=== PATIENT | female | born 1950 | race Hispanic/Latino ===

== ENCOUNTER 2017-06-14 09:22 | Day surgery (SDC) | payer MEDICARE, OTHER ==
[2017-06-14] MEDS ORDERED: NEO SYNEPHRINE/NS Syringe(OR USE) IV ONE (11:00)
[2017-06-14] MEDS ORDERED: ROBINUL ONE (11:00)
[2017-06-14] MEDS ORDERED: ZOFRAN ONE ×2 (11:14→12:26)
[2017-06-14] MEDS ORDERED: LACTATED RINGERS 1,000 ML ONE (11:14)
--- NOTE | 2017-06-14 11:39 | Anesthesia Consultation ---
Anesthesia Consult and Med Hx Date of service: 06/14/17 - Airway Anesthetic Teeth Evaluation: Good ROM Head & Neck: Adequate Mental/Hyoid Distance: Adequate Mallampati Class: Class II Intubation Access Assessment: Probably Good - Pulmonary Exam CTA: Yes - Cardiac Exam Cardiac Exam: RRR - Pre-Operative Health Status ASA Pre-Surgery Classification: ASA3 Proposed Anesthetic Plan: General - Pulmonary Hx Smoking: No Hx Asthma: No Hx Respiratory Symptoms: Yes (Allergies) SOB: No COPD: No Hx Pneumonia: No Hx Sleep Apnea: No (ED PRE SCREEN LOW RISK) - Cardiovascular System Hx Hypertension: No Hx Coronary Artery Disease: No Hx Heart Attack/AMI: No Hx Angina: No Hx Percutaneous Transluminal Coronary Angioplasty (PTCA): No Hx Pacemaker: No Hx Internal Defibrillator: No Hx Valvular Heart Disease: No Hx Heart Murmur: No Hx Peripheral Vascular Disease: No - Central Nervous System Hx Seizures: No CVA: No Hx Back Pain: No Hx Psychiatric Problems: No - Gastrointestinal Hx Ulcer: No Hx Gastroesophageal Reflux Disease: No ("short gut" syndrome; chronic nausea) - Endocrine Hx Renal Disease: No Hx End Stage Renal Disease: No Hx Cirrhosis: No Hx Liver Disease: No Hx Hypothyroidism: Yes (ON MEDS) Hx Hyperthyroidism: No - Hematic Hx Anemia: Yes - Other Systems Hx Cancer: Yes (Lt breast CA; s/p mastectomy; no chemo/rad) Hx Obesity: No
--- NOTE | 2017-06-14 11:40 | Anesthesia Day of Surgery ---
Anesthesia Day of Surgery - Day of Surgery Patient Examined: Yes Patient H&P Reviewed: Yes Patient is NPO: Yes
[2017-06-14] MEDS ORDERED: LEVAQUIN 500MG/100ML 500 MG/100 ML BAG IV NR (12:00)
[2017-06-14] MEDS ORDERED: ZOFRAN IV NR (12:00)
[2017-06-14] MEDS ORDERED: PEPCID PO NR (12:00)
[2017-06-14] MEDS ORDERED: LACTATED RINGERS 1,000 ML IV SCH (12:00)
[2017-06-14] MEDS ORDERED: VERSED IV NR (12:00)
[2017-06-14] MEDS ORDERED: DIPRIVAN 10 MG/ML IV ONE (12:06)
[2017-06-14] MEDS ORDERED: SUBLIMAZE ONE (12:06)
[2017-06-14] MEDS ORDERED: XYLOCAINE MPF 2% ONE (12:11)
[2017-06-14] MEDS ORDERED: DECADRON ONE (12:27)
[2017-06-14] MEDS ORDERED: WATER FOR IRRIG STERILE IR ONE (12:45)
--- NOTE | 2017-06-14 13:04 | Short Stay Summary ---
Short Stay Documentation Date of service: 06/14/17 - History H&P: obtained from office - Allergies and Medications Current Medications: Allergies adhesive Allergy (Verified 12/01/14 13:42) Rash ampicillin Allergy (Unverified 03/04/15 06:10) Rash/ITCHING nitrofurantoin macrocrystalline [From Macrodantin] Allergy (Unverified 03/04/15 06:10) Rash/ITCHING red dye Allergy (Verified 03/07/15 15:09) Itching Sulfa (Sulfonamide Antibiotics) Allergy (Verified 03/07/15 15:09) Rash codeine Adverse Reaction (Verified 12/01/14 13:42) Nausea Home Medications Medication Instructions Recorded Confirmed Last Taken Type Calcium Citrate/Vitamin D3 2 tab PO 8XD 11/30/14 06/12/17 04/25/15 History [Calcium Citrate - Vit D Tablet] Cetirizine HCl [ZyrTEC] 10 mg PO PRN PRN 11/30/14 06/12/17 04/25/15 History Cyanocobalamin [Vitamin B-12] 1,000 mcg IM 1XW 11/30/14 06/12/17 04/25/15 History Diphenoxylate/Atropine [Lomotil] 1 tab PO QID 11/30/14 06/12/17 04/25/15 History Escitalopram Oxalate [Lexapro] 5 mg PO QDAY 11/30/14 06/12/17 04/26/15 History Ferrous Sulfate [Iron Supplement] 325 mg PO DAILY 11/30/14 06/12/17 04/25/15 History Fluticasone [Flonase] 1 spray NS QDAY 11/30/14 06/12/17 04/27/15 08:00 History Folic Acid [Folvite] 1 mg PO QDAY 11/30/14 06/12/17 04/25/15 History Ketorolac [Toradol] 10 mg PO Q4H PRN 11/30/14 06/12/17 03/06/15 History Levothyroxine [Synthroid] 250 mcg PO QAM 11/30/14 06/12/17 04/27/15 08:00 History Multivit with Calcium,Iron,Min 1 each PO BID 11/30/14 06/12/17 04/25/15 History [Multiple Vitamins For Women] Ranitidine HCl [Zantac] 75 mg PO PRN PRN 11/30/14 06/12/17 04/25/15 History oxyCODONE /ACETAMINOPHEN [Percocet 1 tab PO Q6HR PRN 11/30/14 06/12/17 Unknown History 5/325] Ondansetron [Zofran TAB] 4 mg PO Q8HR PRN #20 tablet 04/26/15 06/12/17 Unknown Rx Hydromorphone HCl [Dilaudid] 2 mg PO Q6HR PRN 06/12/17 06/12/17 Unknown History Sodium Bicarbonate 325 mg PO QID 06/12/17 06/12/17 Unknown History Active Medications Famotidine (Pepcid) 20 mg PO PREOP NR Stop: 06/14/17 23:00 Lactated Ringer's (Lactated Ringers) 1,000 mls @ 100 mls/hr IV DIRECT CLAUDETTE Levofloxacin/Dextrose (Levaquin 500mg/100ml) 500 mg in 100 mls @ 100 mls/hr IV PREOP NR PRN Reason: Protocol Stop: 06/14/17 23:00 Midazolam HCl (Versed) 2 mg IV PREOP NR Stop: 06/14/17 23:59 Ondansetron HCl (Zofran) 4 mg IV PREOP NR Stop: 06/14/17 23:00 - Brief post op/procedure progress note Date of procedure: 06/14/17 Pre-op diagnosis: left ureteral stone Procedure: cysto, rpg, left ureteroscopy stent Anesthesia: GETA Surgeon: DURGA BENAVIDES Pathology: none Condition: stable - Hospital course Hospital course: levaquin, dilaudid, post op info on chart - Disposition Condition at discharge: Stable Disposition: DC-01 TO HOME OR SELFCARE Short Stay Discharge Plan Follow up with: MADI RAJPUT MD [Primary Care Provider] - 7 Days Forms: Outpatient Surgery DC Inst.
[2017-06-14] MEDS ORDERED: DILAUDID PO PRN (13:27)
[2017-06-14] MEDS ORDERED: DILAUDID IV PRN (13:53)
--- NOTE | 2017-06-14 14:20 | Operative Report ---
PREOPERATIVE DIAGNOSIS: Right proximal ureteral stone. POSTOPERATIVE DIAGNOSIS: Right proximal ureteral stone. SECONDARY DIAGNOSES: Proximal ureteral stricture. PROCEDURE: Cystoscopy, bilateral retrograde pyelograms, left ureteroscopy, double-J stent placement. SURGEON: Nakul Koroma MD. ANESTHESIA: General. ESTIMATED BLOOD LOSS: Minimal. FLUIDS: Crystalloid. COMPLICATIONS: No complications. INDICATIONS: This patient is a 66-year-old female with history of kidney stones, had left flank pain. CT of the abdomen and pelvis revealed a 10 mm stone x 2 in the proximal ureter. She presents now for surgical intervention. DESCRIPTION OF PROCEDURE: The patient was taken to the operative suite, placed in a supine position. After adequate general anesthesia, she was placed in the dorsal lithotomy position, prepped and draped in a sterile fashion. Pancystourethroscopy was performed with a 22-Lao Storz cystoscope. No bladder pathology. Bilateral retrograde pyelograms were obtained with an 8-Lao [place] catheter and 8 mL of contrast. No filling defects or obstruction on the right. Left side revealed some kinking of the proximal ureter. Multiple attempts to place a wire was unsuccessful on the left collecting system. Ureteroscopy was performed. I was able to thread the kinked area (stricture) and advanced the scope, stone was now in the lower pole kidney and could not be accessed by ureteroscopy. A 6-Lao 22 cm double-J stent with a short internal string was left indwelling. She was extubated and taken to the recovery room in stable condition. She will go home on Dilaudid and Levaquin and will get outpatient lithotripsy. JOB# [id number] [facility]/JEIS
[2017-06-14 14:41] VITALS: BP 120/64
--- NOTE | 2017-06-15 09:38 | Fluoroscopy Report ---
9 FLUOROSCOPIC IMAGES AT BILATERAL RETROGRADE PYELOGRAM: 06/14/17 CLINICAL: Left ureteral stone. FINDINGS: Band Leader images demonstrate paraspinal surgical clips extending from the left upper quadrant to the pelvis. Subsequent images demonstrate retrograde opacification of a moderately dilated left intrarenal collecting system and ureter. Additional images demonstrate placement of a stent. Retro-grade opacification of a normal right renal collecting system and right ureter. For more detail, please refer to the operative report.
== END 2017-06-14 14:51 | disposition home or self-care (01) ==
LOC: OR 09:22
PROVIDERS: ATTEND Urology
DX: N20.2 Calculus of kidney with calculus of ureter (principal); N13.5 Crossing vessel and stricture of ureter without hydronephrosis; K91.2 Postsurgical malabsorption, not elsewhere classified; Z85.3 Personal history of malignant neoplasm of breast; Z90.12 Acquired absence of left breast and nipple; Z91.048 Other nonmedicinal substance allergy status; Z91.041 Radiographic dye allergy status; Z88.5 Allergy status to narcotic agent; Z88.1 Allergy status to other antibiotic agents; Z88.2 Allergy status to sulfonamides; Z79.899 Other long term (current) drug therapy
CPT/HCPCS: 52332; 74420; A4217; C1758; C1769; C2617; J1100; J1956; J2250; J2370; J2405; J2704; J3010; J7120; Q9967

== ENCOUNTER 2018-09-11 06:15 | Day surgery (SDC) | payer MEDICARE, OTHER ==
[~2018-09-11 06:15] MED LIST: LACTATED RINGERS 1,000 ML IV SCH
[2018-09-11] MEDS ORDERED: LEVAQUIN 500MG/100ML 500 MG/100 ML BAG IV NR (07:00)
[2018-09-11] MEDS ORDERED: LEVAQUIN 500MG/100ML 500 MG/100 ML BAG IV ONE (07:25)
[2018-09-11] MEDS ORDERED: DIPRIVAN 10 MG/ML IV ONE (08:19)
[2018-09-11] MEDS ORDERED: SUBLIMAZE ONE (08:19)
[2018-09-11] MEDS ORDERED: XYLOCAINE MPF 2% ONE (08:20)
--- NOTE | 2018-09-11 08:44 | Anesthesia Consultation ---
Anesthesia Consult and Med Hx Date of service: 09/11/18 - Airway Anesthetic Teeth Evaluation: Good (upper and lower permanent implants) ROM Head & Neck: Adequate Mental/Hyoid Distance: Adequate Mallampati Class: Class II Intubation Access Assessment: Probably Good - Pulmonary Exam CTA: Yes - Cardiac Exam Cardiac Exam: RRR - Pre-Operative Health Status ASA Pre-Surgery Classification: ASA3 Proposed Anesthetic Plan: General - Pulmonary Hx Smoking: No Hx Asthma: No Hx Respiratory Symptoms: Yes (recent sinus infection s/p abx) SOB: No Hx Sleep Apnea: No (ED PRE SCREEN LOW RISK.) - Cardiovascular System Hx Hypertension: No Hx Heart Attack/AMI: No Hx Percutaneous Transluminal Coronary Angioplasty (PTCA): No - Central Nervous System Hx Seizures: No CVA: No Hx Psychiatric Problems: Yes (depression) - Gastrointestinal Hx Gastroesophageal Reflux Disease: No (short-gut syndrome; chronic diarrhea) - Endocrine Hx Renal Disease: No Hx Liver Disease: No Hx Insulin Dependent Diabetes: No Hx Non-Insulin Dependent Diabetes: No Hx Hypothyroidism: Yes (ON DAILY MEDS) - Hematic Hx Anemia: Yes - Other Systems Hx Cancer: Yes (Lt breast CA; s/p mastectomy; no chemo/rad) Hx Obesity: No - Additional Comments Anesthesia Medical History Comments: Hx PONV with previous anesthetics but none with last 2 (received decadron and zofran intraop per previous anes record).
[2018-09-11] MEDS ORDERED: SUBLIMAZE IV PRN (08:45)
--- NOTE | 2018-09-11 08:45 | Anesthesia Day of Surgery ---
Anesthesia Day of Surgery - Day of Surgery Patient Examined: Yes Patient H&P Reviewed: Yes Patient is NPO: Yes
--- NOTE | 2018-09-11 09:29 | Short Stay Summary ---
Short Stay Documentation Date of service: 09/11/18 - History H&P: obtained from office - Allergies and Medications Current Medications: Allergies adhesive Allergy (Verified 12/01/14 13:42) Rash ampicillin Allergy (Verified 09/11/18 06:46) Rash/ITCHING nitrofurantoin macrocrystalline [From Macrodantin] Allergy (Verified 09/11/18 06:46) Rash/ITCHING red dye Allergy (Verified 03/07/15 15:09) Itching Sulfa (Sulfonamide Antibiotics) Allergy (Verified 03/07/15 15:09) Rash codeine Adverse Reaction (Verified 12/01/14 13:42) Nausea Home Medications Medication Instructions Recorded Confirmed Last Taken Type Calcium Citrate/Vitamin D3 2 tab PO 8XD 11/30/14 09/02/18 09/10/18 History [Calcium Citrate - Vit D Tablet] Cetirizine HCl [ZyrTEC] 10 mg PO PRN PRN 11/30/14 09/02/18 09/10/18 History Cyanocobalamin [Vitamin B-12] 1,000 mcg IM 1XW 11/30/14 09/02/18 09/10/18 History Diphenoxylate/Atropine [Lomotil] 2 tab PO QID 11/30/14 09/02/18 09/10/18 History Escitalopram Oxalate [Lexapro] 5 mg PO QDAY 11/30/14 09/02/18 09/10/18 History Ferrous Sulfate [Iron Supplement] 325 mg PO BID 11/30/14 09/02/18 09/10/18 History Fluticasone [Flonase] 1 spray NS QDAY 11/30/14 09/02/18 09/11/18 05:30 History Folic Acid [Folvite] 1 mg PO QDAY 11/30/14 09/02/18 09/10/18 History Levothyroxine (Nf) [Synthroid] 250 mcg PO QAM 11/30/14 09/02/18 09/11/18 05:30 History Multivit with Calcium,Iron,Min 1 each PO BID 11/30/14 09/02/18 09/10/18 History [Multiple Vitamins For Women] Ranitidine HCl [Zantac] 75 mg PO PRN PRN 11/30/14 09/02/18 09/11/18 05:30 History oxyCODONE /ACETAMINOPHEN [Percocet 1 tab PO Q6HR PRN 11/30/14 09/02/18 09/10/18 History 5/325] Ondansetron [Zofran TAB] 4 mg PO Q8HR PRN #20 tablet 04/26/15 09/02/18 09/10/18 Rx Cholecalciferol (Vitamin D3) 5,000 unit PO DAILY 09/02/18 09/02/18 09/10/18 History [Vitamin D3] Cholecalciferol (Vitamin D3) 50,000 unit PO 4XW 09/02/18 09/02/18 09/10/18 History [Vitamin D3] Vitamin E 100 unit PO DAILY 09/02/18 09/02/18 09/10/18 History Zinc 50 mg PO DAILY 09/02/18 09/02/18 09/10/18 History Active Medications Fentanyl (Sublimaze) 50 mcg IV Q5MIN PRN PRN Reason: Pain , Severe (7-10) Stop: 09/11/18 20:00 Levofloxacin/Dextrose (Levaquin 500mg/100ml) 500 mg in 100 mls @ 100 mls/hr IV PREOP NR; Protocol Stop: 09/11/18 23:59 Lactated Ringer's (Lactated Ringers) 1,000 mls @ 100 mls/hr IV DIRECT CLAUDETTE Last Admin: 09/11/18 06:55 Dose: 100 mls/hr Documented by: - Brief post op/procedure progress note Date of procedure: 09/11/18 Pre-op diagnosis: rt renal stone Post-op diagnosis: same Procedure: rt eswl Anesthesia: CHANTAL Surgeon: DURGA BENAVIDES Condition: stable - Hospital course Hospital course: [id number], post op info on chart - Disposition Condition at discharge: Stable Disposition: DC-01 TO HOME OR SELFCARE Short Stay Discharge Plan Follow up with: MADI RAJPUT MD [Primary Care Provider] - 7 Days
--- NOTE | 2018-09-11 10:12 | Post Anesthesia Evaluation ---
- Post Anesthesia Evaluation Patient Participated: Yes Airway Patent: Yes Stable Respiratory Function: Yes Nausea/Vomiting: No Temp > 96.8F: Yes Pain Manageable: Yes Adequeate Hydration: Yes Anesthesia Complications: No
--- NOTE | 2018-09-11 10:14 | Operative Report ---
PREOPERATIVE DIAGNOSES: Bilateral renal stones with right renal colic. POSTOPERATIVE DIAGNOSES: Bilateral renal stones with right renal colic. PROCEDURE: Right extracorporeal shock wave lithotripsy (stage procedure). SURGEON: Nakul Koroma MD ANESTHESIA: General. ESTIMATED BLOOD LOSS: Minimal. FLUIDS: Crystalloid. COMPLICATIONS: None. INDICATIONS: This patient is a 68-year-old female seen in the office with long history of stones due to short gut syndrome. She was seen in the office recently and was found to have multiple stones bilaterally, largest fragments on the right side approximately two 10 mm stones. Discussed the options and she agreed to proceed with the procedure. DESCRIPTION OF PROCEDURE: The patient was taken to the operative suite and placed in a supine position. After adequate general anesthesia, her stone was localized in 2 planes using fluoroscopy. Extracorporeal shock wave [place]otripsy [place] [address] shocks. A 5-minute renal pause was performed after 200 shocks. Adequate fragmentation could be appreciated with the renal pelvic stone. Her lower pole stone will have to be addressed at a later date. She tolerated the procedure well. She was extubated and taken to the recovery room in stable condition. She will go home on Dilaudid, Ultram and followup in the office. JOB# [id number] [facility]
[2018-09-11 10:21] VITALS: BP 143/77
== END 2018-09-11 06:16 | disposition home or self-care (01) ==
LOC: OR 06:15
PROVIDERS: ATTEND Urology
DX: N20.0 Calculus of kidney (principal); K21.9 Gastro-esophageal reflux disease without esophagitis; M19.90 Unspecified osteoarthritis, unspecified site; E03.9 Hypothyroidism, unspecified; F32.9 Major depressive disorder, single episode, unspecified; Z88.2 Allergy status to sulfonamides; Z88.5 Allergy status to narcotic agent; Z79.899 Other long term (current) drug therapy; Z90.49 Acquired absence of other specified parts of digestive tract; Z85.3 Personal history of malignant neoplasm of breast; Z90.12 Acquired absence of left breast and nipple; Z87.442 Personal history of urinary calculi; Z90.5 Acquired absence of kidney; Z98.890 Other specified postprocedural states; Z80.3 Family history of malignant neoplasm of breast; Z88.8 Allergy status to other drugs, medicaments and biological substances; Z82.49 Family history of ischemic heart disease and other diseases of the circulatory system
CPT/HCPCS: 50590; J1956; J2704; J3010; J7120